=== PATIENT | female | born 1985 | race Caucasian/White ===

== ENCOUNTER 2016-11-08 18:28 | Inpatient (IN) | payer OTHER ==
[2016-11-08] MEDS ORDERED: LACTATED RINGERS 1,000 ML IV ONE (19:06)
[2016-11-08] MEDS ORDERED: CITRIC ACID-SODIUM CITRATE 15 ML CUP PO ONE (19:06)
[2016-11-08 19:13] VITALS: BMI 27.8
[2016-11-08] MEDS ORDERED: LACTATED RINGERS 1,000 ML IV SCH (19:15)
[2016-11-08] MEDS ORDERED: ceFAZolin 2 GM in SODIUM CHLORIDE 0.9% 100 ML IVPB ONE (19:15)
[2016-11-08 19:23] LABS: Basophils % (A) 0 %; CH 32.1; Eosinophils # (A) 0.2 k/uL (0-0.7); Eosinophils % (A) 1 %; HCT 41.3 % (34.0-46.0); HDW 2.67; Luc # (Auto) 0.35; Luc % (Auto) 3; Lymphocytes % (A) 15 %; MCH 31.3 pg (25.0-35.0); MCHC 33.9 g/dL (31.0-37.0); MCV 92.3 fL (80.0-100.0); Mean Platelet Volume 9.6; Monocytes # (A) 0.6 k/uL (0-1.0); Monocytes % (A) 5 %; Neutrophils # (A) 10.2 k/uL (1.3-7.7); Neutrophils % (A) 77 %; RBC 4.48 m/uL (3.80-5.40); WBC 13.3 k/uL (3.8-10.6)
--- NOTE | 2016-11-08 19:27 | P.HPOB ---
History of Present Illness H&P Date: 11/08/16 Chief Complaint: LAbor, Breech 31 year old presents at 38 weeks 6 days in labor. The baby is in breech presentation so we will prep for . Her cervix is 3/90/-2 and she is zohreh every 1-2 minutes. Review of Systems All systems: negative Constitutional: Denies chills, Denies fever Eyes: denies blurred vision, denies pain Ears, nose, mouth and throat: Denies headache, Denies sore throat Cardiovascular: Denies chest pain, Denies shortness of breath Respiratory: Denies cough Gastrointestinal: Denies abdominal pain, Denies diarrhea, Denies nausea, Denies vomiting Genitourinary: Denies dysuria, Denies hematuria Musculoskeletal: Denies myalgias Integumentary: Denies pruritus, Denies rash Neurological: Denies numbness, Denies weakness Psychiatric: Denies anxiety, Denies depression Endocrine: Denies fatigue, Denies weight change Past Medical History Past Medical History: No Reported History Additional Past Medical History / Comment(s): OB history: She has had 2 previous vaginal deliveries and this is her third . She has had care with Dr Kim since 12 weeks. O+, abs neg, Rub Imm, RPR NR, Hep B neg. History of Any Multi-Drug Resistant Organisms: None Reported Past Surgical History: Tonsillectomy Past Anesthesia/Blood Transfusion Reactions: Motion Sickness Past Psychological History: Anxiety, Depression Smoking Status: Current every day smoker Past Alcohol Use History: None Reported, Rare Past Drug Use History: None Reported - Past Family History Sister(s) Family Medical History: Cancer Medications and Allergies Home Medications Medication Instructions Recorded Confirmed Type Dextroamphetamine/Amphetamine 30 mg PO BID 11/02/16 11/08/16 History [Adderall] #79/Iron Asp Gly/FA#1 1 each PO DAILY 11/02/16 11/08/16 History [Prenate Elite Tablet] Allergies Allergy/AdvReac Type Severity Reaction Status Date / Time No Known Allergies Allergy Verified 11/02/16 12:10 Exam Osteopathic Statement: *. No significant issues noted on an osteopathic structural exam other than those noted in the History and Physical/Consult. - Vital Signs Vital signs: Vital Signs Temp Pulse Resp BP 11/08/16 19:06 96.8 F L 75 18 144/87 Intake and Output 11/08/16 11/08/16 11/08/16 06:59 14:59 22:59 Other: Weight 66.678 kg Patient Weight 11/09/16 06:59 Weight 66.678 kg HEart: RRR Lungs: CTAB Abdomen: soft, nontender Extremeties: neg roxanna's Assessment and Plan (1) Breech presentation Status: Acute (2) Normal labor Status: Acute Plan: 1. prep for primary low transverse
[2016-11-08] MEDS ORDERED: HYDROmorphone (PF) 1 MG/ML ONE (19:31)
[2016-11-08] MEDS ORDERED: OXYTOCIN 10 UNIT/ML 1 ML VIAL IM ONE (19:31)
[2016-11-08] MEDS ORDERED: fentaNYL (PF) 50 MCG/ML 2 ML AMP ONE (19:31)
[2016-11-08] MEDS ORDERED: NALBUPHINE 10 MG/ML AMPUL ONE (19:31)
[2016-11-08] MEDS ORDERED: MORPHINE SULFATE (PF) 0.3 MG/0.3 ML SYR ONE (19:31)
[2016-11-08] MEDS ORDERED: SODIUM CHLORIDE 0.9% 100 ML BAG ONE (19:31)
[2016-11-08] MEDS ORDERED: PHENYLEPHRINE-0.9% NACL SYG 1 MG/10 ML SYRINGE ONE (19:31)
[2016-11-08] MEDS ORDERED: ceFAZolin 1,000 MG VIAL ONE (19:31)
[2016-11-08] MEDS ORDERED: ONDANSETRON 4 MG/2 ML VIAL ONE (19:31)
[2016-11-08] MEDS ORDERED: ePHEDrine 50 MG/ML 1 ML AMP ONE (19:31)
[2016-11-08] MEDS ORDERED: ACETAMINOPHEN TAB 325 MG TAB PO PRN (20:20)
[2016-11-08] MEDS ORDERED: ONDANSETRON 4 MG/2 ML VIAL IVP PRN (20:20)
[2016-11-08] MEDS ORDERED: diphenhydrAMINE 50 MG/ML 1 ML VIAL IVP PRN ×2 (20:20)
[2016-11-08] MEDS ORDERED: NALOXONE 0.4 MG/ML 10 ML VIAL IVP PRN (20:20)
[2016-11-08] MEDS ORDERED: diphenhydrAMINE 50 MG CAP PO PRN (20:20)
[2016-11-08] MEDS ORDERED: LANOLIN CREAM 5 GM TUBE TOPICAL PRN (20:20)
[2016-11-08] MEDS ORDERED: ZOLPIDEM 5 MG TAB PO PRN (20:20)
[2016-11-08] MEDS ORDERED: Acetaminophen-Codeine 300-30mg TAB PO PRN (20:20)
[2016-11-08] MEDS ORDERED: diphenhydrAMINE 25 MG CAP PO PRN (20:20)
[2016-11-08] MEDS ORDERED: METOCLOPRAMIDE 5 MG/ML 2 ML VIAL IVP PRN (20:20)
--- NOTE | 2016-11-08 20:24 | P.OP ---
Date of Procedure: 11/08/16 Preoperative Diagnosis: 1. at 30 weeks and 6 days 2. Normal labor 3. Breech presentation Postoperative Diagnosis: 1. at 30 weeks and 6 days 2. Normal labor 3. Breech presentation Procedure(s) Performed: Primary low transverse Anesthesia: spinal Surgeon: Lucia Ruiz Hematology Specialist #1: Nathaniel Clark Estimated Blood Loss (ml): 500 IV fluids (ml): 300 Urine output (ml): 200 Pathology: other (Placenta) Condition: stable Disposition: floor Indications for Procedure: 31-year-old presented at 30 weeks and 6 days in labor. Her cervix was 3 cm dilated, 80% effaced, -2 station. She is zohreh every 1-2 minutes. heart tones 135-140 with moderate variability and reactive. Baby is in breech presentation by bedside ultrasound. Operative Findings: Viable male, Apgars 9, 9, weight 5 lbs. 7 oz. Description of Procedure: Patient was taken to the operating room where spinal anesthesia was found be adequate. She was prepped and draped in normal sterile fashion in dorsal supine position with a leftward tilt. Pfannenstiel skin incision was made the scalpel and carried through to the underlying layer of fascia with the scalpel. Fascia was incised in midline and carried bilaterally with the Bautista scissors. The superior aspect of the fascial incision was grasped with Gael clamps elevated and the underlying rectus muscles dissected off with the Bautista's. Attention was then turned to inferior aspect of same incision which in a similar fashion was grasped tented up and the underlying rectus muscles dissected off with the Bautista's. The rectus muscles were the midline and the peritoneum was identified tented up and entered sharply with the scalpel. The incision was extended superiorly and inferiorly with good visualization of the bladder. The bladder blade was inserted and the vesicouterine peritoneum was incised the Metzenbaums then carried bilaterally and bladder flap created digitally. A low transverse incision was then made on the uterus with the scalpel. This was carried bilaterally and digital manner. Infant's head delivered atraumatically, nose and mouth bulb suctioned, cord clamped and cut, handed off to waiting nurses. Apgars 9,9, weight 5 lbs. 7oz. Placenta delivered manually, intact with three-vessel cord. The uterus is exteriorized and cleared of all clots and debris. The uterine incision was closed with 0 Vicryl in a running locked fashion. Second layer of the same sutures used in imbricating fashion to obtain excellent hemostasis. Bladder flap was then reapproximated using 2-0 Vicryl in a running fashion. Both ovaries and tubes appeared normal. The uterus was placed back into the abdomen. The peritoneum was reapproximated using 2-0 Vicryl in a running fashion. The muscles were reapproximated using 2-0 Vicryl in interrupted fashion. The fascia was reapproximated using 0 Vicryl in a running fashion. The subcutaneous tissues closed with 3-0 Vicryl running fashion. The skin was closed tita. Patient tolerated the procedure well, sponge and instrument counts were correct times 2 and she was taken to the recovery room in stable condition.
[2016-11-08] MEDS ORDERED: NALOXONE 0.4 MG/ML 1 ML VIAL IV PRN (20:28)
[2016-11-08] MEDS ORDERED: OXYTOCIN 30 UNITS/500 ML NS 30 UNIT in SALINE 1 500ML.BAG IV SCH (20:30)
[2016-11-08] MEDS ORDERED: MORPHINE SULFATE 4 MG/ML SYRINGE IVP PRN (22:02)
[2016-11-08] MEDS: LACTATED RINGERS 1,000 ML IV SCH (22:07)
[2016-11-09] MEDS: KETOROLAC 30 MG/ML 1 ML VIAL IVP PRN ×3 (02:35→17:50)
[2016-11-09 08:30] LABS: Basophils % (A) 0 %; Eosinophils # (A) 0.1 k/uL (0-0.7); Eosinophils % (A) 1 %; HCT 30.3 % (34.0-46.0); HDW 2.67; Large Platelets Flag Slight; Luc # (Auto) 0.17; Luc % (Auto) 2; Lymphocytes # (A) 1.3 k/uL (1.0-4.8); Lymphocytes % (A) 14 %; MCH 31.7 pg (25.0-35.0); MCHC 33.5 g/dL (31.0-37.0); MCV 94.6 fL (80.0-100.0); Mean Platelet Volume 11.8; Monocytes # (A) 0.6 k/uL (0-1.0); Monocytes % (A) 6 %; Neutrophils # (A) 7.2 k/uL (1.3-7.7); Neutrophils % (A) 77 %; RBC 3.21 m/uL (3.80-5.40); WBC 9.2 k/uL (3.8-10.6); WBC (Perox) 9.53
[2016-11-09 08:36] LABS: HGB 10.2 gm/dL (11.4-16.0)
[2016-11-09] MEDS: SENNOSIDES-DOCUSATE SODIUM 1 EACH TAB PO SCH ×2 (08:37→23:00)
--- NOTE | 2016-11-09 08:48 | P.PNOBGPC ---
Subjective - Subjective Principal diagnosis: Postop day 1 Interval history: Overall on is doing very well. She is ambulating, voiding and she is tolerating her diet. We'll advance the diet today and otherwise continue close monitoring. All the questions are answered for her at this time. Her vital signs are stable and she is afebrile. Objective - Vital Signs Latest vital signs: Vital Signs Temp Pulse Resp BP Pulse Ox 11/09/16 08:00 97.5 F L 77 18 82/48 11/09/16 04:00 98.0 F 80 18 88/48 99 11/09/16 02:39 97.6 F 93 18 97/54 11/08/16 22:20 97.5 F L 67 20 139/74 100 11/08/16 21:50 96.9 F L 63 18 139/74 100 11/08/16 21:20 96.2 F L 47 L 16 134/79 99 11/08/16 21:05 79 18 139/84 100 11/08/16 20:50 53 L 18 111/63 100 11/08/16 20:35 96.2 F L 62 18 110/61 100 11/08/16 20:20 96.9 F L 73 18 111/67 100 11/08/16 19:06 96.8 F L 75 18 144/87 Intake and Output 11/08/16 11/09/16 11/09/16 22:59 06:59 14:59 Intake Total 1100 Output Total 50 100 Balance 1050 -100 Intake: IV 1000 Lactated Ringers 1,000 ml 1000 @ 125 mls/hr IV .Q8H [facility] Rx#:[id number] Intake, IV Titration 100 Amount ceFAZolin 2 gm In Sodium 100 Chloride 0.9% 100 ml @ 100 mls/hr IVPB ONCE ONE Rx#:[id number] Output: Urine 50 100 Uretheral (Cesar) 50 Other: Voiding Method Indwelling Catheter Indwelling Catheter # Voids 1 Weight 66.678 kg - Exam Lungs: bilateral: normal Chest: Normal S1, Normal S2 Extremities: Present: normal Abdomen: Present: normal appearance, soft. Absent: distention, tenderness Incision: Present: normal, dry, intact Uterus: Present: normal, firm - Labs Labs: Abnormal Lab Results - Last 24 Hours (Table) 11/08/16 11/09/16 Range/Units 19:15 07:52 WBC 13.3 H (3.8-10.6) k/uL RBC 3.21 L (3.80-5.40) m/uL Hgb 10.2 L D (11.4-16.0) gm/dL Hct 30.3 L (34.0-46.0) % Plt Count 110 L (150-450) k/uL Neutrophils # 10.2 H (1.3-7.7) k/uL
--- NOTE | 2016-11-09 09:53 | P.PN ---
Progress Note - Text Date11/09 Time:952 Patient is status post . Patient seen this morning with VAS score of 4. c/o of pruritus, no c/o nausea/vomiting, comfortable and doing well.
[2016-11-09] MEDS: LACTATED RINGERS 1,000 ML IV SCH (12:11)
[2016-11-09] MEDS: Acetaminophen-Codeine 300-30mg TAB PO PRN ×2 (14:34→21:58)
[2016-11-10] MEDS: IBUPROFEN 600 MG TAB PO PRN ×3 (02:35→23:46)
--- NOTE | 2016-11-10 07:47 | P.PNOBGPC ---
Subjective - Subjective Principal diagnosis: Postop day 2 Interval history: Patient seen and evaluated. Her only complaint is currently her pain and it is incisional only. She says is much more was yesterday and she is requesting change pain medication. We'll change her to [place]. Her vital signs are otherwise stable and she is afebrile. Her heart is regular, lungs are clear, and abdomen is soft. Incision is intact. Assessment postop day 2. Plan continue current care. Baby is in special care nursery at this time. Patient reports: Reports appetite normal, Reports voiding normally : doing well (Incisional pain) Objective - Vital Signs Latest vital signs: Vital Signs Temp Pulse Resp BP Pulse Ox 11/10/16 00:00 98.1 F 67 16 110/73 11/09/16 16:00 98.1 F 76 14 100/60 11/09/16 12:00 97.9 F 64 16 81/39 98 11/09/16 08:00 97.5 F L 77 18 82/48 Intake and Output 11/09/16 11/10/16 11/10/16 22:59 06:59 14:59 Output Total 200 Balance -200 Output: Urine 200 Other: # Voids 2 - Exam Lungs: bilateral: normal Extremities: Present: normal Abdomen: Present: normal appearance, soft. Absent: distention, tenderness Incision: Present: normal, dry, intact Uterus: Present: normal, firm - Labs Labs: Abnormal Lab Results - Last 24 Hours (Table) 11/09/16 Range/Units 07:52 RBC 3.21 L (3.80-5.40) m/uL Hgb 10.2 L D (11.4-16.0) gm/dL Hct 30.3 L (34.0-46.0) % Plt Count 110 L (150-450) k/uL
[2016-11-10] MEDS ORDERED: HYDROcodone/APAP 5-325MG 1 EACH TAB PO PRN (09:12)
[2016-11-10] MEDS: HYDROcodone/APAP 5-325MG 1 EACH TAB PO PRN ×2 (09:23→18:00)
[2016-11-10] MEDS: SENNOSIDES-DOCUSATE SODIUM 1 EACH TAB PO SCH ×2 (09:25→20:50)
[2016-11-10] MEDS: SIMETHICONE 80 MG CHEWABLE PO PRN (21:05)
[2016-11-11] MEDS: HYDROcodone/APAP 5-325MG 1 EACH TAB PO PRN ×3 (03:18→17:28)
[2016-11-11] MEDS: SIMETHICONE 80 MG CHEWABLE PO PRN ×2 (10:09→17:33)
[2016-11-11] MEDS: IBUPROFEN 600 MG TAB PO PRN ×2 (10:09→20:58)
[2016-11-11] MEDS: SENNOSIDES-DOCUSATE SODIUM 1 EACH TAB PO SCH ×2 (10:09→20:57)
[2016-11-12] MEDS: HYDROcodone/APAP 5-325MG 1 EACH TAB PO PRN (03:29)
[2016-11-12 05:21] VITALS: RESP 16
[2016-11-12] MEDS: SENNOSIDES-DOCUSATE SODIUM 1 EACH TAB PO SCH (07:50)
[2016-11-12] MEDS: IBUPROFEN 600 MG TAB PO PRN ×2 (07:51→15:20)
--- NOTE | 2016-11-12 08:35 | P.DS ---
Providers Date of admission: 11/08/16 18:56 Expected date of discharge: 11/12/16 Attending physician: Connor Kim Primary care physician: Stated None Hospital Course: Patient is again seen and evaluated she is now postop day 4. She is ambulating well she is voiding and she is tolerating her diet and she is Down's passed flatus better. Her pain is better controlled with Mantoloking. She had significant pains for the first 2 is days but over the last day and half the pain is slowly improved her vital signs are otherwise stable and she is afebrile. Heart is regular, lungs are clear and her extremities are without pain. Her abdomen is soft incision is clean dry and intact. We'll remove tita today and apply Steri-Strips prior to discharge. She will follow me in 1 week. Prescription for pain relievers including Mantoloking and Motrin have been provided. A breast pump prescription provided. All questions have been addressed and answered for the patient at discharge instructions were again thoroughly reviewed. She is stable for discharge at this time. Patient Condition at Discharge: Good Plan - Discharge Summary New Discharge Prescriptions: HYDROcodone/APAP 5-325MG [Mantoloking 5-325] 1 tab PO Q4HR PRN #30 tab PRN Reason: Pain Ibuprofen [Motrin] 600 mg PO Q6HR PRN #30 tab PRN Reason: Pain Discharge Medication List Dextroamphetamine/Amphetamine [Adderall] 15 mg PO BID 11/02/16 [History] #79/Iron Asp Gly/FA#1 [Prenate Elite Tablet] 1 tab PO DAILY 11/02/16 [ History] HYDROcodone/APAP 5-325MG [Mantoloking 5-325] 1 tab PO Q4HR PRN #30 tab 11/12/16 [Rx] Ibuprofen [Motrin] 600 mg PO Q6HR PRN #30 tab 11/12/16 [Rx] Follow up Appointment(s)/Referral(s): Connor Kim DO [Doctor of Osteopathic Medicine] - 1 Week Activity/Diet/Wound Care/Special Instructions: No heavy lifting, limit stairs and driving and pelvic rest. If any high temperatures, heavy bleeding, or severe pain call my office Discharge Disposition: HOME SELF-CARE
[2016-11-12 15:41] VITALS: BP 112/70; PULSE 73; TEMP 98.2
== END 2016-11-12 18:30 | disposition home or self-care (01) | DRG 766 ==
LOC: FBPOP 18:28 → 4FBP 18:56
PROVIDERS: ADMIT Obstetrics & Gynecology; ATTEND Obstetrics & Gynecology
PROC: 10D00Z1 Extraction of Products of Conception, Low, Open Approach (ICD-10-PCS; principal; 2016-11-08 19:30)
DX: O32.1XX0 Maternal care for breech presentation, not applicable or unspecified (principal); F32.9 Major depressive disorder, single episode, unspecified; O99.334 Smoking (tobacco) complicating childbirth; Z37.0 Single live birth; Z3A.38 38 weeks gestation of pregnancy; F17.200 Nicotine dependence, unspecified, uncomplicated; F41.9 Anxiety disorder, unspecified; O99.344 Other mental disorders complicating childbirth
CPT/HCPCS: 59025; 85025; 86850; 86900; 86901; 88307; 99213

== ENCOUNTER → 2017-03-13 | Outpatient (CLI) | payer OTHER ==
[2017-03-13 14:58] LABS: Basophils # (A) 0.1 k/uL (0-0.2); Basophils % (A) 1 %; CH 29.9; CHCM 33.8; Eosinophils # (A) 0.4 k/uL (0-0.7); Eosinophils % (A) 4 %; HCT 44.3 % (34.0-46.0); HDW 2.44; HGB 14.6 gm/dL (11.4-16.0); Luc # (Auto) 0.24; Luc % (Auto) 3; Lymphocytes # (A) 3.3 k/uL (1.0-4.8); Lymphocytes % (A) 34 %; MCH 29.3 pg (25.0-35.0); MCV 88.9 fL (80.0-100.0); Mean Platelet Volume 8.4; Monocytes # (A) 0.7 k/uL (0-1.0); Monocytes % (A) 8 %; Neutrophils # (A) 4.8 k/uL (1.3-7.7); Neutrophils % (A) 51 %; RBC 4.98 m/uL (3.80-5.40); RDW 15.3 % (11.5-15.5); WBC 9.6 k/uL (3.8-10.6); WBC (Perox) 9.08
== END | disposition home or self-care (01) ==
LOC: LABWHC1 14:19
PROVIDERS: ATTEND Obstetrics & Gynecology
DX: Z01.812 Encounter for preprocedural laboratory examination (principal)
CPT/HCPCS: 85025

== ENCOUNTER 2017-03-19 06:37 | Day surgery (SDC) | payer OTHER ==
[2017-03-14 14:41] VITALS: BMI 20.9
[~2017-03-19 06:37] MED LIST: DEXAMETHASONE SOD PHOSPHATE 10 MG/ML 1 ML VIAL IV ONE; HYDROmorphone 1 MG/ML 1 ML SYRINGE IVP PRN; LACTATED RINGERS 1,000 ML IV SCH; LIDOCAINE 1% 20 ML VIAL (10MG/ML) FOR IV START INTRADERMA PRN; MIDAZOLAM 2 MG/2 ML VIAL IV PRN; ONDANSETRON 4 MG/2 ML VIAL IVP PRN; Pre Op ABX Message 1 EACH MISC MISCELLANE ONE
[2017-03-19] MEDS ORDERED: LACTATED RINGERS 1,000 ML IV ONE ×3 (06:48→09:13)
[2017-03-19] MEDS ORDERED: SCOPOLAMINE 1.5MG/72HR PATCH TRANSDERM ONE (06:49)
--- NOTE | 2017-03-19 07:31 | P.HPOB ---
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 Patient's physical exam reveals vital signs are stable and afebrile. Heart regular, lungs clear, extremities without pain. Pelvic exam otherwise unremarkable. Assessment PAULETTE-3. Plan LEEP colposcopy. Past Medical History Past Medical History: No Reported History Additional Past Medical History / Comment(s): OB history: She has had 2 previous vaginal deliveries and this is her third . She has had care with Dr Kim since 12 weeks. O+, abs neg, Rub Imm, RPR NR, Hep B neg. History of Any Multi-Drug Resistant Organisms: None Reported Past Surgical History: Tonsillectomy Additional Past Surgical History / Comment(s): wisdom teeth Past Anesthesia/Blood Transfusion Reactions: Motion Sickness Past Psychological History: Anxiety, Depression Smoking Status: Current every day smoker Past Alcohol Use History: None Reported Additional Past Alcohol Use History / Comment(s): smoker since [id number] Past Drug Use History: None Reported - Past Family History Sister(s) Family Medical History: Cancer Medications and Allergies Home Medications Medication Instructions Recorded Confirmed Type Dextroamphetamine/Amphetamine 30 mg PO BID 11/02/16 03/14/17 History [Adderall] ALPRAZolam [Xanax] 1 mg PO Q8HR PRN 03/14/17 03/14/17 History Loratadine 10 mg PO DAILY 03/14/17 03/14/17 History Venlafaxine HCl [Effexor XR] 150 mg PO DAILY 03/14/17 03/14/17 History Allergies Allergy/AdvReac Type Severity Reaction Status Date / Time No Known Allergies Allergy Verified 03/14/17 14:17 Exam Osteopathic Statement: *. No significant issues noted on an osteopathic structural exam other than those noted in the History and Physical/Consult. - Vital Signs Vital signs: Vital Signs Temp Pulse Resp BP Pulse Ox 03/19/17 06:44 98.3 F 90 18 116/80 99
[2017-03-19] MEDS ORDERED: PROPOFOL 10 MG/ML 20 ML VIAL IV ONE (07:40)
[2017-03-19] MEDS ORDERED: fentaNYL (PF) 50 MCG/ML 2 ML AMP ONE (07:40)
[2017-03-19] MEDS ORDERED: MIDAZOLAM 2 MG/2 ML VIAL ONE (07:40)
[2017-03-19] MEDS ORDERED: KETOROLAC 30 MG/ML 1 ML VIAL ONE (07:40)
[2017-03-19] MEDS ORDERED: LIDOCAINE 1% INJ 10MG/ML (20 ML MDV) ONE (07:40)
[2017-03-19] MEDS ORDERED: IODINE/POTASS IOD (LUGOLS) BTL TOPICAL ONE (07:44)
--- NOTE | 2017-03-19 08:02 | P.OP ---
Date of Procedure: 03/19/17 Preoperative Diagnosis: PAULETTE-3 Postoperative Diagnosis: Same Procedure(s) Performed: LEEP colposcopy Implants: Anesthesia: ELSIE Surgeon: Connor Kim Estimated Blood Loss (ml): 1 Pathology: other (Ectocervix) Condition: stable Disposition: same day Indications for Procedure: Operative Findings: Tissue pathology pending Description of Procedure: Patient states the operating suite where a general anesthetic was found be adequate. She was prepped and draped in normal sterile fashion and placed in the dorsal lithotomy position. Initially a coated speculum was inserted into the vagina and cervix was brought cervix. Colposcope was then used with Lugol solution to identify dysplastic areas. This was accomplished using a 2 cm loop a LEEP cone was removed in 1 step. Unfortunately even try to avoid then the strings from IUD were cut. Other than taking the somewhat more challenging and removal there is no other complications with this. Once the specimens obtained WITH cautery was used to obtain excellent hemostasis and potentially destroy any remaining dysplastic tissue. All instruments were then removed sponge lap needle counts were all correct 2 specimen was marked at 12:00 and sent to pathology for evaluation. Patient was then taken to the recovery room in stable and satisfactory condition. Plan - Discharge Summary New Discharge Prescriptions: New Acetaminophen-Codeine 300-30mg [Tylenol #3] 1 tab PO Q4H PRN #30 tablet PRN Reason: Pain No Action Dextroamphetamine/Amphetamine [Adderall] 30 mg PO BID Ibuprofen [Motrin] 600 mg PO Q6HR PRN #30 tab PRN Reason: Pain Venlafaxine HCl [Effexor XR] 150 mg PO DAILY ALPRAZolam [Xanax] 1 mg PO Q8HR PRN PRN Reason: Anxiety Loratadine 10 mg PO DAILY Discharge Medication List Dextroamphetamine/Amphetamine [Adderall] 30 mg PO BID 11/02/16 [History] Ibuprofen [Motrin] 600 mg PO Q6HR PRN #30 tab 11/12/16 [Rx] ALPRAZolam [Xanax] 1 mg PO Q8HR PRN 03/14/17 [History] Loratadine 10 mg PO DAILY 03/14/17 [History] Venlafaxine HCl [Effexor XR] 150 mg PO DAILY 03/14/17 [History] Acetaminophen-Codeine 300-30mg [Tylenol #3] 1 tab PO Q4H PRN #30 tablet [Rx] Follow up Appointment(s)/Referral(s): Connor Kim DO [Doctor of Osteopathic Medicine] - 2 Weeks Activity/Diet/Wound Care/Special Instructions: No heavy lifting, limit stairs and driving. If any high temperatures, heavy bleeding, or severe pain call the office. She needs to complete pelvic rest for next 2-4 weeks
[2017-03-19 08:20] VITALS: RESP 16
[2017-03-19 08:50] VITALS: TEMP 98
[2017-03-19 09:47] VITALS: BP 113/78; PULSE 74
== END 2017-03-19 10:17 | disposition home or self-care (01) ==
LOC: OR 06:37
PROVIDERS: ATTEND Obstetrics & Gynecology
DX: A63.0 Anogenital (venereal) warts (principal); R87.613 High grade squamous intraepithelial lesion on cytologic smear of cervix (HGSIL); F41.9 Anxiety disorder, unspecified; F32.9 Major depressive disorder, single episode, unspecified; F90.9 Attention-deficit hyperactivity disorder, unspecified type; F17.200 Nicotine dependence, unspecified, uncomplicated; Z79.899 Other long term (current) drug therapy
CPT/HCPCS: 57460; 81025; 88307; J2250; J1100; J2405; J2001; J3010; J1885; J1170; J2704